=== PATIENT | male | born 1930 | race Caucasian/White ===

== ENCOUNTER → 2017-04-06 | Day surgery (SDC) | payer MEDICARE ==
[~2017-04-06] VITALS: Ht 167.6 cm; Wt 80.7 kg
[~2017-04-06] MED LIST: *morphine SULFATE 8 MG/ML PERIprocedure ONLY ONE; ACETAMINOPHEN/HYDROcodone 325 MG/7.5 MG TAB PO PRN; ALLO100T PO; ALLO300T2 PO; ASPI-110 PO; ASPI1TAB69 PO; BUPIVACAINE/EPINEPHRINE 0.5% PF 30 ML VIAL ONE; CALC0.25 PO; CARV25TA PO; CHLORHEXIDINE GLUCONATE 2 % 1 PACK (2 CLOTHS) TOPICAL PRN; CLON0.1T PO; DO NOT ADM ANY ANTICOAGULANT DRUGS PRN; DOXA4TAB3 PO; FAMOTIDINE 20 MG/2 ML VIAL ONE; FERR1TAB58 PO; FURO1TAB60 PO; INSULIN HUMAN REGULAR 1,000 UNITS/10 ML VIAL SQ PRN; LACTATED RINGER'S 1000 ML IV PRN; LOSA50TA PO; METOPROLOL TARTRATE 25 MG TAB PO PRN; MIDAZOLAM HCL 2 MG/2 ML VIAL ONE; NEOSTIGMINE 3 MG/3 ML SYR IV ONE; ONDANSETRON HCL 4 MG/2 ML VIAL IV PUSH ONE; ONDANSETRON HCL 4 MG/2 ML VIAL IV PUSH PRN; PATI1POW; PATI1POW3 PO; PIOG30TA4 PO; PRAV40TA2 PO; PROC20005 SQ; PROPOFOL 200 MG/20 ML AMP IV ONE; SODI-345 PO; SODIUM CHLORID 0.9% 500 ML IV PRN; VITA100064 PO; VITA100T PO; ceFAZolin 1,000 MG/NS 100 ML IV SCH; fentaNYL CITRATE 250 MCG/5 ML AMP ONE
[2017-04-06 10:04] VITALS: BP 183/82; PULSE 58; RESP 16; TEMP 97.1; O2SAT 99
[2017-04-06 10:20] LABS: AUTOMATED NEUTROPHIL # 3.4 TH/MM3 (1.8-7.7); BASOPHIL % 0.8 % (0.0-2.0); EOSINOPHIL # 0.4 TH/MM3 (0-0.4); EOSINOPHIL % 8.1 % (0.0-4.0); HEMATOCRIT 32.5 % (39.0-51.0); HEMO FLAGS DIFF FINAL; LYMPH % 17.6 % (9.0-44.0); LYMPHOCYTE # 0.9 TH/MM3 (1.0-4.8); MEAN CELL VOLUME 96.3 FL (80.0-100.0); MEAN CORPUSCULAR HEMOGLOBIN 32.5 PG (27.0-34.0); MEAN CORPUSCULAR HGB CONC 33.8 % (32.0-36.0); MONO % 9.4 % (0.0-8.0); NEUT % 64.1 % (16.0-70.0); PLATELET COUNT 134 TH/MM3 (150-450); RED BLOOD COUNT 3.37 MIL/MM3 (4.50-5.90); RED CELL DISTRIBUTION WIDTH 15.8 % (11.6-17.2); WHITE BLOOD COUNT 5.2 TH/MM3 (4.0-11.0)
--- NOTE | 2017-04-06 10:27 | EKG ---
Date Performed: 04/06/2017 Time Performed: 09:39:24 PTAGE: 86 years EKG: SINUS BRADYCARDIA WITH OCCASIONAL SUPRAVENTRICULAR PREMATURE COMPLEXES BORDERLINE ECG NO SI GNIFICANT CHANGE FROM PRIOR ELECTROCARDIOGRAM. PREVIOUS TRACING : 09/15/1999 12.31 DOCTOR: Eric Canela Interpretating Date/Time 04/06/2017 10:26:12
[2017-04-06 10:34] LABS: BICARBONATE 29.2 MEQ/L (21.0-32.0); POTASSIUM 3.6 MEQ/L (3.5-5.1)
[2017-04-06 15:50] VITALS: BP 166/81; PULSE 73; RESP 18; TEMP 97.6; O2SAT 97
--- NOTE | 2017-04-07 07:47 | MP ---
cc: Patel REDDY M.D. KIMO BENNETT M.D. DATE OF SURGERY 04/06/2017 PREOPERATIVE DIAGNOSIS Chronic kidney disease - needs peritoneal dialysis access. POSTOPERATIVE DIAGNOSIS Chronic kidney disease - needs peritoneal dialysis access. PROCEDURE Laparoscopic-assisted peritoneal dialysis catheter placement. SURGEON Henry Bennett MD RADIOLOGY MANAGER RANDA Mccollum ANESTHESIA General endotracheal DESCRIPTION OF THE OPERATIVE PROCEDURE With the patient in the supine position, general endotracheal anesthesia was induced, the abdomen then prepped with Betadine and draped in a sterile fashion. One gram of Ancef was administered intravenously and following a protocol time-out, the skin and subcutaneous tissue at the proposed incision sites preemptively infiltrated with 0.5% Marcaine with epinephrine. A transverse 2 cm incision was performed along the medial left intracostal region. The incision was deepened through the anterior rectus sheath. The posterior rectus sheath and peritoneum was incised and a 5 mm Surgiport bluntly advanced to the peritoneal space. The abdomen was insufflated with carbon dioxide. Laparoscopy revealed scattered adhesions throughout the mid pelvis related to prior prostatectomy. A separate 2 cm incision was performed immediately to the left and inferior to the umbilicus. The incision was deepened through the anterior rectus sheath. An 18 gauge needle was guided obliquely and caudally between the anterior and posterior rectus sheaths and under laparoscopic visualization, the needle was punctured through the posterior rectus sheath and peritoneum and guided toward the mid pelvis. A J-wire was advanced into the mid pelvis. The needle was exchanged for a catheter insertion sheath. The coiled peritoneal dialysis catheter was then delivered through the tear-away sheath and positioned within the mid pelvis. The internal catheter cuff was placed subjacent to the rectus sheathotomy which was secured around the cuff with interrupted 2-0 PDS. The subcutaneous portion of the catheter was tunneled and brought out through a separate stab incision left mid rectus region. The catheter was trimmed to an appropriate length. The titanium adapter was applied, the catheter flushed and capped. The abdomen was desufflated. The left subcostal rectus incision was secured with continuous 4-0 Monocryl. Both skin incisions were secured with continuous subcuticular 5-0 Monocryl. Steri-Strips were applied. The catheter exit site was dressed with sterile gauze and Tegaderm. Instrument, needle, and sponge counts correct x2. No operative complications. The patient returned to the recovery room in stable condition having tolerated the procedure well. MD JOELLEN Crews/ADI /5:34 PM /7:39 AM
== END | disposition home or self-care (01) ==
LOC: HSDC 09:11
PROVIDERS: ATTEND Surgery Vascular Surgery
DX: N18.9 Chronic kidney disease, unspecified (principal); Z01.810 Encounter for preprocedural cardiovascular examination; Z01.818 Encounter for other preprocedural examination
CPT/HCPCS: 00840; 49324; 80048; 85025; 93005; C1750; J0690; J2250; J2270; J2405; J2710; J3010; J7120

== ENCOUNTER 2017-05-16 10:59 | Emergency (ER) | payer MEDICARE ==
[~2017-05-16] VITALS: Ht 167.6 cm; Wt 82.0 kg
[~2017-05-16 10:59] MED LIST changes: -*morphine SULFATE 8 MG/ML PERIprocedure ONLY ONE; -ACETAMINOPHEN/HYDROcodone 325 MG/7.5 MG TAB PO PRN; -ALLO300T2 PO; -ASPI1TAB69 PO; -BUPIVACAINE/EPINEPHRINE 0.5% PF 30 ML VIAL ONE; -CHLORHEXIDINE GLUCONATE 2 % 1 PACK (2 CLOTHS) TOPICAL PRN; -DO NOT ADM ANY ANTICOAGULANT DRUGS PRN; -FAMOTIDINE 20 MG/2 ML VIAL ONE; -INSULIN HUMAN REGULAR 1,000 UNITS/10 ML VIAL SQ PRN; -LACTATED RINGER'S 1000 ML IV PRN; -METOPROLOL TARTRATE 25 MG TAB PO PRN; -MIDAZOLAM HCL 2 MG/2 ML VIAL ONE; -NEOSTIGMINE 3 MG/3 ML SYR IV ONE; -ONDANSETRON HCL 4 MG/2 ML VIAL IV PUSH ONE; -ONDANSETRON HCL 4 MG/2 ML VIAL IV PUSH PRN; -PROPOFOL 200 MG/20 ML AMP IV ONE; -SODIUM CHLORID 0.9% 500 ML IV PRN; -ceFAZolin 1,000 MG/NS 100 ML IV SCH; -fentaNYL CITRATE 250 MCG/5 ML AMP ONE
[2017-05-16 11:01] VITALS: BP 169/69; PULSE 57; RESP 16; TEMP 98.3; O2SAT 97
--- NOTE | 2017-05-16 11:34 | PD ---
HPI Chief Complaint: Welder Assistant Problem Time Seen by Provider: 11:28 Travel History International Travel<30 days: No Contact w/Intl Traveler<30days: No Traveled to known affect area: No History of Present Illness HPI Patient is 86-year-old male who presents to the emergency Department with complaint of dialysis port problem. Patient is on peritoneal dialysis. He disconnected from his machine this morning and forgot to put the sterile cap on it. He then talked to the port into his pocket. Later, he realized it and put the sterile port Back on. He called his sandblast carver, Dr. Morocho, who instructed him to come to the emergency department. Patient is otherwise asymptomatic. PFSH Past Medical History Cancer: Yes (PROSTATE, SKIN CA ON HEAD) Cardiovascular Problems: No Diabetes: Yes Patient Takes Glucophage: No Endocrine: No Gastrointestinal Disorders: Yes Genitourinary: Yes Hepatitis: No Hiatal Hernia: No Hypertension: Yes Immune Disorder: No Musculoskeletal: No Neurologic: No Psychiatric: No Reproductive: No Respiratory: No Renal Failure: Yes Thyroid Disease: No Past Surgical History Abdominal Surgery: Yes ( ) AICD: No Cardiac Surgery: No Cholecystectomy: Yes Ear Surgery: No Endocrine Surgery: No Eye Surgery: Yes (cataract 6-7 years ago) Genitourinary Surgery: No Joint Replacement: No Pacemaker: No Thoracic Surgery: No Tonsillectomy: Yes Social History Alcohol Use: Yes Tobacco Use: No Substance Use: No Allergies-Medications (Allergen,Severity, Reaction): Coded Allergies: Iodine (Verified Allergy, Severe, Swelling, 04/15/17) face swelling Seafood (Verified Allergy, Severe, Swelling, 04/15/17) face swelling Amoxicillin (Verified Allergy, Unknown, 05/16/17) Reported Meds & Prescriptions Reported Meds & Active Scripts Active Reported Veltassa (Patiromer Sorbitex Calcium) 16.8 Gm Pow 14 Mg PO DAILY Veltassa (Patiromer Sorbitex Calcium) 8.4 Gm Pow Vitamin D3 (Cholecalciferol) 1,000 Unit Tab 1,000 Units PO DAILY Aspirin 81 (Aspirin) 81 Mg Tabdr 81 Mg PO DAILY Allopurinol 100 Mg Tab 100 Mg PO DAILY Procrit Inj (Epoetin Madhu) 20,000 Unit/Ml Inj 20,000 Units SQ [id number] Sodium Bicarbonate (Sodium Bicarbonate (Bulk)) 1 Pow Pow 1 Pack PO BID Lasix (Furosemide) 40 Mg Tab 40 Mg PO BID Calcitriol 0.25 Mcg Cap 0.25 Mcg PO MOWEFR Clonidine (Clonidine HCl) 0.1 Mg Tab 0.1 Mg PO DAILY Losartan (Losartan Potassium) 50 Mg Tab 50 Mg PO DAILY Carvedilol 25 Mg Tab 12.5 Mg PO DAILY Vitamin B-12 (Cyanocobalamin) 100 Mcg Tab 100 Mcg PO DAILY Iron (Ferrous Sulfate) 50 Mg Tab 65 Mg PO DAILY Doxazosin (Doxazosin Mesylate) 4 Mg Tab 4 Mg PO DAILY Pravastatin 40 Mg Tab 40 Mg PO DAILY Pioglitazone (Pioglitazone HCl) 30 Mg Tab 30 Mg PO DAILY Review of Systems Except as stated in HPI: all other systems reviewed are Neg Physical Exam Narrative GENERAL: Well-appearing elderly male in no acute distress SKIN: Focused skin assessment warm/dry. HEAD: Normocephalic. EYES: No scleral icterus. No injection or drainage. ENT: Mucous membranes pink and moist. NECK: Supple CARDIOVASCULAR: Regular rate and rhythm. RESPIRATORY: No accessory muscle use. GASTROINTESTINAL: Obese. Abdomen soft, non-tender, nondistended. Dialysis port left abdomen. MUSCULOSKELETAL: Normal gait NEUROLOGICAL: Awake and alert. Normal speech. PSYCHIATRIC: Appropriate mood and affect; insight and judgment normal. Data Data Last Documented VS Vital Signs Date Time Temp Pulse Resp B/P Pulse Ox O2 Delivery O2 Flow Rate FiO2 05/16/17 11:01 98.3 57 16 169/69 97 Orders Iv Access Insert/Monitor (05/16/17 11:46) Oximetry (05/16/17 11:46) Sodium Chloride 0.9% Flush (Ns Flush) (05/16/17 12:00) Vancomycin Inj (Vancomycin Inj) (05/16/17 11:46) Ceftazidime Inj (Fortaz Inj) (05/16/17 13:00) MDM Medical Decision Making Medical Screen Exam Complete: Yes Emergency Medical Condition: Yes Medical Record Reviewed: Yes Differential Diagnosis 86-year-old male on peritoneal dialysis here after he forgot to place the sterile cap on his peritoneal dialysis catheter this morning prior to putting it in his pocket. Differential includes medical devices problem, contamination of peritoneal dialysis catheter. Narrative Course I spoke with patient's sandblast carver, Dr. Morocho, who wanted 1 g of vancomycin, 1 g of Ceftazidime administered and discharged home Diagnosis Primary Impression: Infection of peritoneal dialysis catheter site Qualified Code: T85.71XA - Infection of peritoneal dialysis catheter site, initial encounter Referrals: Patel Morocho MD 1 day Additional Instructions: Follow-up in dialysis clinic tomorrow as instructed by Dr. Morocho. Med/Other Pt SpecificInfo: No Change to Meds Disposition: 01 DISCHARGE HOME Condition: Stable Mercedes Still MD May 16, 2017 11:34
[2017-05-16] MEDS ORDERED: VANCOMYCIN INJ 1,000 MG in SODIUM CHLOR 0.9% 250 ML INJ 250 ML IV STA (11:46)
[2017-05-16] MEDS ORDERED: SODIUM CHLORIDE 0.9% FLUSH 10 ML FLUSH IV FLUSH PRN (12:00)
[2017-05-16] MEDS ORDERED: cefTAZidime 1,000 MG/NS 100 ML MINIBAG IV ONE ×2 (13:00)
== END 2017-05-16 13:54 | disposition home or self-care (01) ==
LOC: NEPD 10:59
DX: T85.71XA Infection and inflammatory reaction due to peritoneal dialysis catheter, initial encounter (principal); E11.22 Type 2 diabetes mellitus with diabetic chronic kidney disease; I12.9 Hypertensive chronic kidney disease with stage 1 through stage 4 chronic kidney disease, or unspecified chronic kidney disease; N18.9 Chronic kidney disease, unspecified; Z79.82 Long term (current) use of aspirin; Z79.899 Other long term (current) drug therapy
CPT/HCPCS: 96374; 96375; 99284; J0713; J3370; J7050

== ENCOUNTER 2017-07-14 08:51 | Inpatient (IN) | payer MEDICARE ==
[~2017-07-14] VITALS: Ht 167.6 cm; Wt 83.0 kg
[2017-07-14 09:00] VITALS: BP 126/59; PULSE 82; RESP 18; TEMP 97.8; O2SAT 98
[2017-07-14] MEDS ORDERED: ACETAMINOPHEN 325 MG TAB PO PRN ×2 (10:00→12:15)
[2017-07-14] MEDS ORDERED: BISACODYL 10 MG SUPP RECTAL PRN (10:00)
[2017-07-14] MEDS ORDERED: NALOXONE HCL 0.4 MG/ML AMP IV PUSH PRN (10:00)
[2017-07-14] MEDS ORDERED: LACTULOSE SYRUP 20 GM/30 ML CUP PO PRN (10:00)
[2017-07-14] MEDS ORDERED: SENNOSIDES 8.6 MG TAB PO PRN (10:00)
[2017-07-14] MEDS ORDERED: SODIUM CHLORIDE 0.9% FLUSH 10 ML FLUSH IV FLUSH PRN ×2 (10:00→12:15)
[2017-07-14] MEDS ORDERED: ONDANSETRON HCL 4 MG/2 ML VIAL IVP PRN (10:00)
[2017-07-14] MEDS ORDERED: MAGNESIUM HYDROXIDE SUSP 30 ML CUP PO PRN (10:00)
--- NOTE | 2017-07-14 10:03 | HHI.HP ---
[facility] Dion Littlejohn MD Admission Diagnosis Diagnoses: Chief Complaint: direct admit for HD (Aleksandra Miller) Travel History International Travel<30 Days: No Contact w/Intl Traveler <30 Da: No Traveled to Known Affected Are: No (Aleksandra Miller) History of Present Illness Mr. Nacho Culver is a pleasant 86-year-old elderly white male with significant past medical history of chronic kidney disease stage V, hypertension, type 2 diabetes, hyperkalemia, peripheral edema. Patient is under the care of Dr. Morocho. Patient has a known history of chronic kidney disease has advanced to end-stage renal disease, he has been on peritoneal dialysis since March 2017. Apparently, treatments have not been working therefore he was sent to the hospital by Dr. Morocho to have a permacath placed and to be started on hemodialysis. Patient indicates that he has not been eating very much and is very fatigued. He has some shortness of breath with exertion, no chest pain. He has chills but no fever. He had a peritoneal catheter placed per Dr. Schafer on April 06, 2017. Patient indicates that he has increased pedal edema, he has been compliant with taking medications. Patient is admitted for further evaluation and treatment. (Aleksandra Miller) Review of Systems Constitutional: COMPLAINS OF: Fatigue, Change in appetite, DENIES: Diaphoretic episodes, Fever, Weight gain, Weight loss, Chills, Dizziness, Night Sweats Endocrine: DENIES: Heat/cold intolerance, Polydipsia, Polyuria, Polyphagia Eyes: DENIES: Blurred vision, Diplopia, Eye inflammation, Eye pain, Vision loss , Photosensitivity, Double Vision Ears, nose, mouth, throat: DENIES: Tinnitus, Hearing loss, Vertigo, Nasal discharge, Oral lesions, Throat pain, Hoarseness, Ear Pain, Running Nose, Epistaxis, Sinus Pain, Toothache, Odynophagia Respiratory: DENIES: Apneas, Cough, Snoring, Wheezing, Hemoptysis, Sputum production, Shortness of breath Cardiovascular: COMPLAINS OF: Dyspnea on Exertion, Lower Extremity Edema, DENIES: Chest pain, Palpitations, Syncope, PND, Orthopnea, Claudication Gastrointestinal: DENIES: Abdominal pain, Black stools, Bloody stools, Constipation, Diarrhea, Nausea, Vomiting, Difficulty Swallowing, Anorexia Genitourinary: DENIES: Sexual dysfunction, Urinary frequency, Urinary incontinence, Urgency, Hematuria, Dysuria, Nocturia, Penile Discharge, Testicular Pain, Testicular Swelling Musculoskeletal: DENIES: Joint pain, Muscle aches, Stiffness, Joint Swelling, Back pain, Neck pain Integumentary: DENIES: Abnormal pigmentation, Nail changes, Pruritus, Rash Hematologic/lymphatic: DENIES: Bruising, Lymphadenopathy Immunologic/allergic: DENIES: Eczema, Urticaria Neurologic: DENIES: Abnormal gait, Headache, Localized weakness, Paresthesias, Seizures, Speech Problems, Tremor, Poor Balance Psychiatric: DENIES: Anxiety, Confusion, Mood changes, Depression, Hallucinations, Agitation, Suicidal Ideation, Homicidal Ideation, Delusions Other Not making any urine (Aleksandra Miller) Past Family Social History Past Medical History End-stage renal disease now requiring peritoneal dialysis CKD stage V Anemia Type 2 diabetes Hyperkalemia Peripheral edema Hypertension Type 2 diabetes Hyperlipidemia Gout Skin cancer Secondary hyperparathyroidism Acidosis Past Surgical History PD catheter placement 04/06/[address] Schafer Skin cancer removal Cholecystectomy Prostate surgery Reported Medications Reported Meds & Active Scripts Active Reported Veltassa (Patiromer Sorbitex Calcium) 16.8 Gm Pow 14 Mg PO DAILY Veltassa (Patiromer Sorbitex Calcium) 8.4 Gm Pow Vitamin D3 (Cholecalciferol) 1,000 Unit Tab 1,000 Units PO DAILY Aspirin 81 (Aspirin) 81 Mg Tabdr 81 Mg PO DAILY Allopurinol 100 Mg Tab 100 Mg PO DAILY Procrit Inj (Epoetin Madhu) 20,000 Unit/Ml Inj 20,000 Units SQ [id number] Sodium Bicarbonate (Sodium Bicarbonate (Bulk)) 1 Pow Pow 1 Pack PO BID Lasix (Furosemide) 40 Mg Tab 40 Mg PO BID Calcitriol 0.25 Mcg Cap 0.25 Mcg PO MOWEFR Clonidine (Clonidine HCl) 0.1 Mg Tab 0.1 Mg PO DAILY Losartan (Losartan Potassium) 50 Mg Tab 50 Mg PO DAILY Carvedilol 25 Mg Tab 12.5 Mg PO DAILY Vitamin B-12 (Cyanocobalamin) 100 Mcg Tab 100 Mcg PO DAILY Iron (Ferrous Sulfate) 50 Mg Tab 65 Mg PO DAILY Doxazosin (Doxazosin Mesylate) 4 Mg Tab 4 Mg PO DAILY Pravastatin 40 Mg Tab 40 Mg PO DAILY Pioglitazone (Pioglitazone HCl) 30 Mg Tab 30 Mg PO DAILY (Aleksandra Miller) Allergies: Coded Allergies: Fish Containing Products (Unverified Allergy, Severe, Swelling, 06/08/17) face swelling iodine (Unverified Allergy, Severe, Swelling, 06/08/17) face swelling potassium iodide (Unverified Allergy, Severe, Swelling, 06/08/17) face swelling povidone-iodine (Unverified Allergy, Severe, Swelling, 06/08/17) face swelling sodium iodide (Unverified Allergy, Severe, Swelling, 06/08/17) face swelling sodium iodide (Unverified Allergy, Severe, Swelling, 06/08/17) face swelling amoxicillin (Unverified Allergy, Unknown, 06/08/17) Active Ordered Medications Inpatient Medications Acetaminophen (Tylenol) 650 mg Q4H PRN PO TEMP > 100.4; Start 07/14/17 at 10:00 ; Status UNV Bisacodyl (Dulcolax Supp) 10 mg DAILY PRN RECTAL SEVERE CONSITIPATION; Start at 10:00; Status UNV Lactulose (Lactulose Liq) 30 ml DAILY PRN PO SEVERE CONSITIPATION; Start at 10:00; Status UNV Magnesium Hydroxide (Milk Of Magnesia Liq) 30 ml Q12H PRN PO MILD - MODERATE CONSTIPATION; Start 07/14/17 at 10:00; Status UNV Naloxone HCl (Narcan Inj) 0.4 mg UNSCH PRN IV PUSH SEE LABEL COMMENTS; Start at 10:00; Status UNV Ondansetron HCl (Zofran Inj) 4 mg Q6H PRN IVP NAUSEA OR VOMITING; Start at 10:00; Status UNV Senna/Docusate Sodium (Hillary-Colace) 1 tab BID PO ; Start 07/14/17 at 21:00; Status UNV Sennosides (Senokot) 17.2 mg Q12H PRN PO MODERATE - SEVERE CONSTIPATION; Start 07/14/17 at 10:00; Status UNV Sodium Chloride (NS Flush) 2 ml BID IV FLUSH ; Start 07/14/17 at 21:00; Status UNV Family History Father , stroke, coronary artery disease Mother , stroke, coronary artery disease Family history of hypertension Social History Prior smoker, 3 drinks per week. No illegal drug use. (Aleksandra Miller) Physical Exam Vital Signs Vital Signs Date Time Temp Pulse Resp B/P (MAP) Pulse Ox O2 Delivery O2 Flow Rate FiO2 07/14/17 09:00 97.8 82 18 126/59 (81) 98 Physical Exam GENERAL: This is a well-nourished, well-developed patient, in no apparent distress. SKIN: No rashes, ecchymoses or lesions. Cool and dry. HEAD: Atraumatic. Normocephalic. No temporal or scalp tenderness. EYES: Pupils equal round and reactive. Extraocular motions intact. No scleral icterus. No injection or drainage. ENT: Nose without bleeding, purulent drainage or septal hematoma. Throat without erythema, tonsillar hypertrophy or exudate. Uvula midline. Airway patent. NECK: Trachea midline. No JVD or lymphadenopathy. Supple, nontender, no meningeal signs. CARDIOVASCULAR: Regular rate and rhythm without murmurs, gallops, or rubs. RESPIRATORY: Clear to auscultation. Breath sounds equal bilaterally. No wheezes , rales, or rhonchi. GASTROINTESTINAL: Abdomen soft, non-tender, nondistended. No hepato-splenomegaly , or palpable masses. No guarding. Has a peritoneal dialysis catheter to the left lower abdomen. Dressing is intact. No erythema. MUSCULOSKELETAL: Extremities without clubbing, cyanosis. Has 2-3+ pitting edema edema. Pedal pulses difficult to palpate, toes warm to touch. Capillary refill less than 3 seconds. No joint tenderness, effusion, or edema noted. No calf tenderness. Negative Homans sign bilaterally. NEUROLOGICAL: Awake and alert. Cranial nerves II through XII intact. Motor and sensory grossly within normal limits. Five out of 5 muscle strength in all muscle groups. Normal speech. (Aleksandra Miller) Caprini VTE Risk Assessment Caprini VTE Risk Assessment: Mod/High Risk (score >= 2) Caprini Risk Assessment Model Point Value = 1 Point Value = 2 Point Value = 3 Point Value = 5 Age 41-60 Minor surgery BMI > 25 kg/m2 Swollen legs Varicose veins or History of unexplained or recurrent spontaneous Oral contraceptives or hormone replacement Sepsis (< 1 month) Serious lung disease, including pneumonia (< 1 month) Abnormal pulmonary function Acute myocardial infarction Congestive heart failure (< 1 month) History of inflammatory bowel disease Medical patient at bed rest Age 61-74 Arthroscopic surgery Major open surgery (> 45 min) Laparoscopic surgery (> 45 min) Malignancy Confined to bed (> 72 hours) Immobilizing plaster cast Central venous access Age >= 75 History of VTE Family history of VTE Factor V Leiden Prothrombin [id number] Lupus anticoagulant Anticardiolipin antibodies Elevated serum homocysteine Heparin-induced thrombocytopenia Other congenital or acquired thrombophilia Stroke (< 1 month) Elective arthroplasty Hip, pelvis, or leg fracture Acute spinal cord injury (< 1 month) Prophylaxis Regimen Total Risk Factor Score Risk Level Prophylaxis Regimen 0-1 Low Early ambulation 2 Moderate Order ONE of the following: *Sequential Compression Device (SCD) *Heparin 5000 units SQ BID 3-4 Higher Order ONE of the following medications: *Heparin 5000 units SQ TID *Enoxaparin/Lovenox 40 mg SQ daily (WT < 150 kg, CrCl > 30 mL/min) *Enoxaparin/Lovenox 30 mg SQ daily (WT < 150 kg, CrCl > 10-29 mL/min) *Enoxaparin/Lovenox 30 mg SQ BID (WT < 150 kg, CrCl > 30 mL/min) AND/OR *Sequential Compression Device (SCD) 5 or more Highest Order ONE of the following medications: *Heparin 5000 units SQ TID (Preferred with Epidurals) *Enoxaparin/Lovenox 40 mg SQ daily (WT < 150 kg, CrCl > 30 mL/min) *Enoxaparin/Lovenox 30 mg SQ daily (WT < 150 kg, CrCl > 10-29 mL/min) *Enoxaparin/Lovenox 30 mg SQ BID (WT < 150 kg, CrCl > 30 mL/min) AND *Sequential Compression Device (SCD) (Aleksandra Miller) Assessment and Plan Problem List: (1) End stage renal disease ICD Codes: N18.6 - End stage renal disease Status: Chronic (2) CKD (chronic kidney disease) stage 5, GFR less than 15 ml/min ICD Codes: N18.5 - Chronic kidney disease, stage 5 Status: Chronic (3) Hypertension ICD Codes: I10 - Essential (primary) hypertension (4) Type 2 diabetes mellitus ICD Codes: E11.9 - Type 2 diabetes mellitus without complications Status: Chronic (5) Peripheral edema ICD Codes: R60.9 - Edema, unspecified Assessment and Plan Admit to Dr. Stout 86-year-old male with chronic kidney disease stage V, was on peritoneal dialysis. Now admitted for permacath placement and to begin hemodialysis Chronic kidney disease stage V now requiring dialysis -Nephrology consultation -Patient will be kept nothing by mouth, nephrology to arrange placement of permacath -Hemodialysis management per nephrology -Monitor renal function -Avoid nephrotoxic agents Diabetes type 2 -Accu-Cheks before meals and at bedtime with insulin therapy Hypertension, stable -Resume home medications Peripheral edema -Continue diuretics -Patient to be started on hemodialysis We will check stat BMP, CBC, PT/INR, PT We'll keep nothing by mouth for permacath placement today Home medications reviewed, some initiated as indicated SCDs for DVT prophylaxis Plan of care has been discussed with the patient and his , RN and attending. Further management of the patient will be dependent on the hospital course This patient was seen by myself and Dr. Stout, this H&P is written on his behalf (Aleksandra Miller) Assessment and Plan seen, examined by myself, Dr Stout, today Discussed with patient End-stage renal disease Has been on peritoneal dialysis Now converted to hemodialysis Patient complaining of severe fatigue and severe exertional dyspnea with fluid retention, lower extremities edema The hope is that with hemodialysis he will have some better quality of life with trying to control his symptoms Discussed with mid level provider The exam, history, and the medical decision-making described in the above note were completed with the assistance of the mid-level provider. I reviewed the findings presented. I attest that I had a [id number] encounter with the patient on the same day, and personally performed and documented my assessment and findings in the medical record. (Colleen Stout MD) Physician Certification 2 Midnight Certification Type: Admission for Inpatient Services Order for Inpatient Services The services are ordered in accordance with Medicare regulations or non- Medicare payer requirements, as applicable. In the case of services not specified as inpatient-only, they are appropriately provided as inpatient services in accordance with the 2-midnight benchmark. Estimated LOS (days): 2 2 days is the estimated time the patient will need to remain in the hospital, assuming treatment plan goals are met and no additional complications. Post-Hospital Plan: Home Health (Aleksandra Miller) Problem Qualifiers (1) Hypertension: Qualified Codes: I10 - Essential (primary) hypertension (2) Type 2 diabetes mellitus: Qualified Codes: E11.22 - Type 2 diabetes mellitus with diabetic chronic kidney disease; N18.6 - End stage renal disease; Z99.2 - Dependence on renal dialysis Aleksandra Miller Jul 14, 2017 10:03 Colleen Stout MD Jul 14, 2017 18:32
[2017-07-14 12:00] VITALS: BP 133/66; PULSE 71; RESP 18; TEMP 97.8; O2SAT 97
[2017-07-14 12:02] LABS: HEMATOCRIT 28.4 % (39.0-51.0); MEAN CELL VOLUME 97.3 FL (80.0-100.0); MEAN CORPUSCULAR HEMOGLOBIN 31.8 PG (27.0-34.0); MEAN CORPUSCULAR HGB CONC 32.6 % (32.0-36.0); PLATELET COUNT 195 TH/MM3 (150-450); RED BLOOD COUNT 2.92 MIL/MM3 (4.50-5.90); RED CELL DISTRIBUTION WIDTH 15.9 % (11.6-17.2); REVIEW FLAG FINAL; WHITE BLOOD COUNT 5.8 TH/MM3 (4.0-11.0)
[2017-07-14] MEDS ORDERED: SODIUM CHLOR 0.9% 1000 ML INJ 1,000 ML IV PRN (12:04)
[2017-07-14] MEDS ORDERED: SODIUM CHLOR 0.9% 1000 ML INJ 1,000 ML OTHER PRN ×2 (12:04)
[2017-07-14 12:09] LABS: APTT (PATIENT) 26.4 SEC (24.3-30.1); INTERNATIONAL NORMALIZED RATIO 1.1 RATIO; PROTHROMBIN TIME - PATIENT 11.7 SEC (9.8-11.6)
[2017-07-14] MEDS ORDERED: diphenhydrAMINE HCL 25 MG CAP PO PRN (12:15)
[2017-07-14] MEDS ORDERED: ALBUMIN HUMAN 25% 25 GM/100 ML BAGP IV PRN (12:15)
[2017-07-14] MEDS ORDERED: cloNIDine HCL 0.1 MG TAB PO PRN (12:15)
[2017-07-14] MEDS ORDERED: GENTAMICIN SULFATE (DIALYSIS USE ONLY) 20 MG/2 ML VIAL OTHER PRN (12:15)
[2017-07-14] MEDS ORDERED: MANNITOL 12.5 GM/50 ML VIAL IV PRN (12:15)
[2017-07-14] MEDS ORDERED: HEPARIN SODIUM - IV 10,000 UNITS/10 ML VIAL PRN (12:15)
[2017-07-14] MEDS ORDERED: HEPARIN SODIUM - IV 10,000 UNITS/10 ML VIAL IV FLUSH PRN (12:15)
[2017-07-14] MEDS ORDERED: NITROGLYCERIN 0.4 MG SL 25 TABS/BTL SL PRN (12:15)
[2017-07-14] MEDS ORDERED: ONDANSETRON HCL 4 MG/2 ML VIAL IV PUSH PRN (12:15)
[2017-07-14] MEDS ORDERED: GELATIN 12 MM/7 MM FOAM TOP PRN (12:15)
[2017-07-14 12:18] LABS: BICARBONATE 31.1 MEQ/L (21.0-32.0); POTASSIUM 3.1 MEQ/L (3.5-5.1)
[2017-07-14 12:46] VITALS: O2SAT 98
[2017-07-14] MEDS ORDERED: GLUCAGON 1 MG/ML VIAL OTHER PRN (13:00)
[2017-07-14] MEDS ORDERED: DEXTROSE 50% IN WATER 50 ML VIAL(D50) IV PUSH PRN (13:00)
[2017-07-14] MEDS ORDERED: VANCOMYCIN INJ 500 MG in SODIUM CHLORIDE 0.9% INJ 100 ML IV SCH (13:30)
[2017-07-14] MEDS ORDERED: CALCITRIOL 0.25 MCG CAP PO SCH (14:00)
[2017-07-14 16:00] VITALS: BP 153/78; PULSE 74; RESP 18; TEMP 98.1; O2SAT 97
[2017-07-14] MEDS ORDERED: POTASSIUM CHLORIDE 25 MEQ EFFERVESCENT TAB PO ONE (16:00)
[2017-07-14] MEDS ORDERED: MIDAZOLAM HCL 2 MG/2 ML VIAL ONE (16:10)
--- NOTE | 2017-07-14 16:37 | PD.RAD ---
Post Procedure Progress Note Pre Procedure Diagnosis: (1) End stage renal disease Post Procedure Diagnosis: (1) End stage renal disease Procedure Date: Jul 14, 2017 Supervising Radiologist: Michael Diaz Estimated blood loss: 3CC Anesthesia: Local, Conscious Sedation Plan of Activity Patient to Unit: Other Patient Condition: Fair Additional Comments: Right IJ Perm Cath placed without difficulty. Catheter in good position OK for use. Full dictated report to follow See PACS Report for procedural detail/treatment Michael Diaz MD Jul 14, 2017 16:37
--- NOTE | 2017-07-14 16:44 | PD.CONS ---
[facility] Service Nephrology Reason for Consult Known to our services. To convert from PD to HD Primary Care Physician Dion Littlejohn MD History of Present Illness The patient is an 86 yo [place] male who is known to our services for ESRD on PD. He is a fairly new start to dialysis with start in March 2017, but has not been meeting kT/V and has not been meeting ultrafiltration goals despite PD solution prescription change. His recent PET test showed that he is a high transporter. He has been progressively fatigued and is now becoming fluid overloaded. He has been admitted to this facility to convert to hemodialysis via permcath. (Danyelle Cheney) Review of Systems Constitutional: COMPLAINS OF: Fatigue Cardiovascular: COMPLAINS OF: Lower Extremity Edema (Danyelle Cheney) Past Family Social History Allergies: Coded Allergies: Fish Containing Products (Unverified Allergy, Severe, Swelling, 06/08/17) face swelling iodine (Unverified Allergy, Severe, Swelling, 06/08/17) face swelling potassium iodide (Unverified Allergy, Severe, Swelling, 06/08/17) face swelling povidone-iodine (Unverified Allergy, Severe, Swelling, 06/08/17) face swelling sodium iodide (Unverified Allergy, Severe, Swelling, 06/08/17) face swelling sodium iodide (Unverified Allergy, Severe, Swelling, 06/08/17) face swelling amoxicillin (Unverified Allergy, Unknown, 06/08/17) Past Medical History End-stage renal disease Anemia Type 2 diabetes Hypertension Hyperlipidemia Gout Skin cancer Secondary hyperparathyroidism Past Surgical History Skin cancer removal Cholecystectomy Prostate surgery PD catheter placement by Dr. Schafer March 2017 Reported Medications Reported Meds & Active Scripts Active Reported Veltassa (Patiromer Sorbitex Calcium) 16.8 Gm Pow 14 Mg PO DAILY Veltassa (Patiromer Sorbitex Calcium) 8.4 Gm Pow Vitamin D3 (Cholecalciferol) 1,000 Unit Tab 1,000 Units PO DAILY Aspirin 81 (Aspirin) 81 Mg Tabdr 81 Mg PO DAILY Allopurinol 100 Mg Tab 100 Mg PO DAILY Procrit Inj (Epoetin Madhu) 20,000 Unit/Ml Inj 20,000 Units SQ [id number] Sodium Bicarbonate (Sodium Bicarbonate (Bulk)) 1 Pow Pow 1 Pack PO BID Lasix (Furosemide) 40 Mg Tab 40 Mg PO BID Calcitriol 0.25 Mcg Cap 0.25 Mcg PO MOWEFR Clonidine (Clonidine HCl) 0.1 Mg Tab 0.1 Mg PO DAILY Losartan (Losartan Potassium) 50 Mg Tab 50 Mg PO DAILY Carvedilol 25 Mg Tab 12.5 Mg PO DAILY Vitamin B-12 (Cyanocobalamin) 100 Mcg Tab 100 Mcg PO DAILY Iron (Ferrous Sulfate) 50 Mg Tab 65 Mg PO DAILY Doxazosin (Doxazosin Mesylate) 4 Mg Tab 4 Mg PO DAILY Pravastatin 40 Mg Tab 40 Mg PO DAILY Pioglitazone (Pioglitazone HCl) 30 Mg Tab 30 Mg PO DAILY Active Ordered Medications Current Medications Medications (Trade) Dose Ordered Sig/[place] Route Start Time Stop Time Status Last Admin (NS Flush) 2 ml UNSCH PRN IV FLUSH 07/14/17 10:00 (NS Flush) 2 ml BID IV FLUSH 07/14/17 21:00 (Tylenol) 650 mg Q4H PRN PO 07/14/17 10:00 (Zofran Inj) 4 mg Q6H PRN IVP 07/14/17 10:00 (Narcan Inj) 0.4 mg UNSCH PRN IV PUSH 07/14/17 10:00 (Hillary-Colace) 1 tab BID PO 07/14/17 21:00 (Milk Of Magnesia Liq) 30 ml Q12H PRN PO 07/14/17 10:00 (Senokot) 17.2 mg Q12H PRN PO 07/14/17 10:00 (Dulcolax Supp) 10 mg DAILY PRN RECTAL 07/14/17 10:00 (Lactulose Liq) 30 ml DAILY PRN PO 07/14/17 10:00 Sodium Chloride 1,000 ml @ 0 mls/hr Q0M PRN OTHER 07/14/17 12:04 (Heparin Inj) 8,000 units UNSCH PRN IV FLUSH 07/14/17 12:15 Sodium Chloride 1,000 ml @ 200 mls/hr Q5H PRN IV 07/14/17 12:04 Sodium Chloride 1,000 ml @ 0 mls/hr Q0M PRN OTHER 07/14/17 12:04 (Mannitol Inj) 12.5 gm UNSCH PRN IV 07/14/17 12:15 (Albumin 25% Inj) 25 gm UNSCH PRN IV 07/14/17 12:15 (NS Flush) 5 ml UNSCH PRN IV FLUSH 07/14/17 12:15 (Heparin Inj) UNSCH PRN .XX 07/14/17 12:15 (Gentamicin (Dialysis) Inj) 20 mg UNSCH PRN OTHER 07/14/17 12:15 (Zofran Inj) 4 mg UNSCH PRN IV PUSH 07/14/17 12:15 (Tylenol) 650 mg UNSCH PRN PO 07/14/17 12:15 (Benadryl) 25 mg UNSCH PRN PO 07/14/17 12:15 (Nitrostat Sl) 0.4 mg UNSCH PRN SL 07/14/17 12:15 (Catapres) 0.1 mg UNSCH PRN PO 07/14/17 12:15 (Gelfoam 12 Mm/7 Mm Top) 1 foam UNSCH PRN TOP 07/14/17 12:15 (Zyloprim) 100 mg DAILY PO 07/15/17 09:00 (Rocaltrol) 0.25 mcg MoWeFr PO 07/14/17 14:00 (Coreg) 12.5 mg DAILY PO 07/15/17 09:00 (Vitamin D3) 1,000 units DAILY PO 07/15/17 09:00 (Catapres) 0.1 mg DAILY PO 07/15/17 09:00 (Cardura) 4 mg DAILY PO 07/15/17 09:00 (Lasix) 40 mg BID PO 07/14/17 21:00 (Cozaar) 50 mg DAILY PO 07/15/17 09:00 (Actos) 30 mg DAILY PO 07/15/17 09:00 (Pravachol) 40 mg DAILY PO 07/15/17 09:00 (D50w (Vial) Inj) 50 ml UNSCH PRN IV PUSH 07/14/17 13:00 (Glucagon Inj) 1 mg UNSCH PRN OTHER 07/14/17 13:00 (NovoLOG SUPPLEMENTAL SCALE) 1 ACHS SLIDING SCALE SQ 07/14/17 17:00 Vancomycin HCl 500 mg/Sodium Chloride 100 ml @ 200 mls/hr [employer] IV 07/14/17 13:30 07/17/17 13:29 07/14/17 14:09 Family History CAD Social History Drinks 3 alcoholic drinks weekly Previous smoker, but not in many years Denies illicits and [place] (Danyelle Cheney) Physical Exam Vital Signs Vital Signs Date Time Temp Pulse Resp B/P (MAP) Pulse Ox O2 Delivery O2 Flow Rate FiO2 07/14/17 12:46 98 21 07/14/17 12:00 97.8 71 18 133/66 (88) 97 07/14/17 12:00 Room Air 07/14/17 09:45 98 Room Air 07/14/17 09:00 97.8 82 18 126/59 (81) 98 Physical Exam GENERAL: Seen during HD. Access appears to be working well. SKIN: Warm and dry. HEAD: Atraumatic. Normocephalic. EYES: Pupils equal and round. No scleral icterus. No injection or drainage. ENT: No nasal bleeding or discharge. Mucous membranes pink and moist. NECK: Trachea midline. No JVD. CARDIOVASCULAR: Regular rate and rhythm. RESPIRATORY: No accessory muscle use. Clear to auscultation. Breath sounds equal bilaterally. GASTROINTESTINAL: Abdomen soft, non-tender, nondistended. Hepatic and splenic margins not palpable. MUSCULOSKELETAL: Extremities without clubbing, cyanosis, 2+ pitting edema BLE up to knees NEUROLOGICAL: Awake and alert. Normal speech. PSYCHIATRIC: Appropriate mood and affect; insight and judgment normal. Laboratory Laboratory Tests Test 07/14/17 11:50 White Blood Count 5.8 Red Blood Count 2.92 Hemoglobin 9.3 Hematocrit 28.4 Mean Corpuscular Volume 97.3 Mean Corpuscular Hemoglobin 31.8 Mean Corpuscular Hemoglobin Concent 32.6 Red Cell Distribution Width 15.9 Platelet Count 195 Mean Platelet Volume 8.1 Prothrombin Time 11.7 Prothromb Time International Ratio 1.1 Activated Partial Thromboplast Time 26.4 Blood Urea Nitrogen 50 Creatinine 8.38 Random Glucose 119 Calcium Level 8.3 Sodium Level 136 Potassium Level 3.1 Chloride Level 94 Carbon Dioxide Level 31.1 Anion Gap 11 Estimat Glomerular Filtration Rate 6 (Danyelle Cheney) Result Diagram: 07/14/17 1150 07/14/17 1150 Assessment and Plan Problem List: (1) End stage renal disease ICD Codes: N18.6 - End stage renal disease Status: Chronic Plan: The patient has unfortunately failed peritoneal dialysis attempts despite prescription change, not meeting kinetics and becoming fluid overloaded. He has been seen s/p PermCath placement and during first hemodialysis session and access working well Will run 3h treatment today and if doing well tomorrow, will be discharged to start MWF schedule as outpatient. Received K+ supplement today for hypokalemia. On 3K bath Epogen 10,000U tonight with HD. Medications should be adjusted for the patient's ESRD. Avoid gadolinium. (2) Anemia ICD Codes: D64.9 - Anemia, unspecified Plan: Epogen with HD (3) Hypertension ICD Codes: I10 - Essential (primary) hypertension Plan: Continue on home regimen (4) Type 2 diabetes mellitus ICD Codes: E11.9 - Type 2 diabetes mellitus without complications Status: Chronic Plan: Continue on home regimen (Danyelle Cheney) Assessment and Plan The exam, history, and the medical decision-making described in the above note were completed with the assistance of the PA-C. I reviewed and agree with the findings presented. I attest that I had a [id number] encounter with the patient on the same day, and personally performed and documented my assessment and findings in the medical record. (Patel Morocho MD) Problem Qualifiers (1) Hypertension: Qualified Codes: I10 - Essential (primary) hypertension (2) Type 2 diabetes mellitus: Qualified Codes: E11.22 - Type 2 diabetes mellitus with diabetic chronic kidney disease; N18.6 - End stage renal disease; Z99.2 - Dependence on renal dialysis Danyelle Cheney Jul 14, 2017 16:43 Patel Morocho MD Jul 14, 2017 18:44
[2017-07-14] MEDS ORDERED: SODIUM CHLORIDE 0.9% FLUSH 10 ML FLUSH IVF PRN (16:45)
[2017-07-14] MEDS ORDERED: HEPARIN SODIUM - IV 2,000 UNITS/2 ML VIAL IV FLUSH PRN (16:45)
[2017-07-14] MEDS: INSULIN ASPART SUPPLEMENTAL SCALE SQ SCH ×2 (17:00→21:00)
[2017-07-14] MEDS ORDERED: EPOETIN ALFA 10,000 UNITS/ML VIAL IV ONE (18:00)
[2017-07-14 20:20] VITALS: BP 132/58; PULSE 92; RESP 16; TEMP 97.9; O2SAT 95
[2017-07-14 20:25] VITALS: PULSE 95
[2017-07-14] MEDS: SODIUM CHLORIDE 0.9% FLUSH 10 ML FLUSH IV FLUSH SCH (21:00)
[2017-07-14] MEDS ORDERED: SODIUM BICARBONATE PO SCH (21:00)
[2017-07-14] MEDS: FUROSEMIDE 40 MG TAB PO SCH (21:00)
[2017-07-14] MEDS: DOCUSATE SODIUM 50 MG/SENNA 8.6 MG TAB PO SCH (21:00)
[2017-07-15 00:07] VITALS: BP 133/60; PULSE 79; RESP 16; TEMP 98.7; O2SAT 96
[2017-07-15 04:55] VITALS: BP 135/63; PULSE 63; RESP 16; TEMP 97.9; O2SAT 94
[2017-07-15] MEDS: INSULIN ASPART SUPPLEMENTAL SCALE SQ SCH ×2 (07:59→12:00)
[2017-07-15 08:00] VITALS: BP 128/72; PULSE 68; PULSE 69; RESP 18; TEMP 99.1; O2SAT 94
[2017-07-15] MEDS: DOCUSATE SODIUM 50 MG/SENNA 8.6 MG TAB PO SCH (08:55)
[2017-07-15] MEDS: FUROSEMIDE 40 MG TAB PO SCH (08:58)
[2017-07-15] MEDS ORDERED: LOSARTAN 50 MG TAB PO SCH (09:00)
[2017-07-15] MEDS ORDERED: cloNIDine HCL 0.1 MG TAB PO SCH (09:00)
[2017-07-15] MEDS ORDERED: PIOGLITAZONE HCL 30 MG TAB PO SCH (09:00)
[2017-07-15] MEDS ORDERED: CHOLECALCIFEROL (VIT D3) 1000 UNIT TAB PO SCH (09:00)
[2017-07-15] MEDS ORDERED: CARVEDILOL 12.5 MG TAB PO SCH (09:00)
[2017-07-15] MEDS: SODIUM CHLORIDE 0.9% FLUSH 10 ML FLUSH IV FLUSH SCH (09:00)
[2017-07-15] MEDS ORDERED: PATIROMER PO SCH (09:00)
[2017-07-15] MEDS ORDERED: ALLOPURINOL 100 MG TAB PO SCH (09:00)
[2017-07-15] MEDS ORDERED: PRAVASTATIN SOD 40 MG TAB PO SCH (09:00)
[2017-07-15] MEDS ORDERED: DOXAZOSIN MESYLATE 4 MG TAB PO SCH (09:00)
[2017-07-15 09:14] LABS: BICARBONATE 31.7 MEQ/L (21.0-32.0); POTASSIUM 3.3 MEQ/L (3.5-5.1)
[2017-07-15 11:53] LABS: HEPATITIS B SURFACE ANTIBODY 0 mIU/mL
[2017-07-15 12:00] VITALS: BP 107/55; PULSE 68; RESP 18; TEMP 98.2; O2SAT 97
--- NOTE | 2017-07-15 12:21 | HHI.DCPOC ---
Discharge Care Plan Diagnosis: (1) End stage renal disease (2) Peripheral edema (3) Hypertension (4) Type 2 diabetes mellitus (5) CKD (chronic kidney disease) stage 5, GFR less than 15 ml/min (6) Anemia Your Health Problems Are: Anxiety Difficulty with ADL Shortness of Breath Goals to Promote Your Health * To prevent worsening of your condition and complications * To maintain your health at the optimal level Directions to Meet Your Goals Take your medications as prescribed Follow your dietary instruction Follow activity as directed Keep your appointments as scheduled Take your immunizations and boosters as scheduled If your symptoms worsen call your PCP, if no PCP go to Urgent Care Center or Emergency Room Smoking is Dangerous to Your Health. Avoid second hand smoke Call the 24-hour hour crisis hotline for domestic abuse at Aleksandra Miller [facility] Jul 15, 2017 12:21
--- NOTE | 2017-07-15 12:22 | HHI.PR ---
Subjective Subjective Remarks feels better no sob no cp less fatigue less leg swelling anxious to home at bsd Review of Systems Constitutional Constitutional Remarks 12 point ros completed, negative except as noted above Vitals/Results Vital Signs Vital Signs Date Time Temp Pulse Resp B/P (MAP) Pulse Ox O2 Delivery O2 Flow Rate FiO2 07/15/17 12:00 98.2 68 18 107/55 (72) 97 07/15/17 08:00 Room Air 07/15/17 08:00 68 07/15/17 08:00 99.1 69 18 128/72 (90) 94 07/15/17 04:55 97.9 63 16 135/63 (87) 94 07/15/17 00:07 98.7 79 16 133/60 (84) 96 07/14/17 22:33 Room Air 07/14/17 20:20 97.9 92 16 132/58 (82) 95 07/14/17 16:00 98.1 74 18 153/78 (103) 97 07/14/17 12:46 98 21 CBC/BMP: 07/14/17 1150 07/15/17 0609 Lab Results Laboratory Tests Test 07/14/17 17:20 07/15/17 05:50 07/15/17 06:09 Blood Urea Nitrogen 32 MG/DL Creatinine 5.99 MG/DL Random Glucose 103 MG/DL Calcium Level 7.7 MG/DL Sodium Level 140 MEQ/L Potassium Level 3.3 MEQ/L Chloride Level 100 MEQ/L Carbon Dioxide Level 31.7 MEQ/L Anion Gap 8 MEQ/L Estimat Glomerular Filtration Rate 9 ML/MIN Physical Exam General General Appearance: Well Developed, Well Nourished, No Acute Distress, Comfortable, Obese Eyes Eye Exam: Pupils Equal, Pupils Reactive Ears & Nose Ears & Nose Exam: Nasal Mucosa [place] Throat Throat Exam: Oral Mucosa [place] & Moist Neck Neck Exam: Neck Supple, Trachea Midline Pulmonary Resp Exam: Clear Bilaterally, No Distress Cardiology CV Exam: Regular Gastrointestinal/Abdomen GI Exam: Soft, Non-Tender, Bowel Sounds Present, Non-Distended GI Remarks PD catheter LLQ Musculoskeletal MS Exam: Joints Intact Integumentary Skin Exam: Warm, Dry Extremeties Extremities Exam: Pedal Pulses Palpable, Moderate Edema (improved ) Neurologic Neuro Exam: Alert, Awake, Oriented, Speech Clear, Moving All Extremities, No Focal Deficits Psychiatric Psych Exam: Appropriate Responses VTE Prophylaxis VTE Prophylaxis Device: SCDs Assessment/Plan Problem List: (1) End stage renal disease ICD Codes: N18.6 - End stage renal disease Status: Chronic (2) Peripheral edema ICD Codes: R60.9 - Edema, unspecified (3) Hypertension ICD Codes: I10 - Essential (primary) hypertension (4) Type 2 diabetes mellitus ICD Codes: E11.9 - Type 2 diabetes mellitus without complications Status: Chronic (5) CKD (chronic kidney disease) stage 5, GFR less than 15 ml/min ICD Codes: N18.5 - Chronic kidney disease, stage 5 Status: Chronic (6) Anemia ICD Codes: D64.9 - Anemia, unspecified Status: Chronic Assessment/Plan 86-year-old male with chronic kidney disease stage V, was on peritoneal dialysis. Now admitted for permacath placement and to begin hemodialysis Chronic kidney disease stage V now requiring dialysis -Nephrology input appreciated. -permacath done in IR 07/14, had first HD treatment x 3 hours. Tolerated well. -Avoid nephrotoxic agents -renal indices improved, less leg swelling. Less fatigue Diabetes type 2 -Accu-Cheks before meals and at bedtime with insulin therapy -blood glucose stable Hypertension, stable -continue home medications Peripheral edema -Continue diuretics SCDs for DVT prophylaxis Labs reviewed, replace K improved renal indices symptoms improving will have RN assist OOB consult PT for eval poss dc today after nephrology clears D/W RN D/W pt and D/W Dr. Stout This patient was seen by myself and Dr. Stout, this note is written on his behalf Problem Qualifiers (1) Hypertension: Qualified Codes: I10 - Essential (primary) hypertension (2) Type 2 diabetes mellitus: Qualified Codes: E11.22 - Type 2 diabetes mellitus with diabetic chronic kidney disease; N18.6 - End stage renal disease; Z99.2 - Dependence on renal dialysis (3) Anemia: Aleksandra Miller Jul 15, 2017 12:22
--- NOTE | 2017-07-15 12:31 | RADRPT ---
EXAM DATE/TIME: 07/14/2017 15:56 [place] COMPARISON: No previous studies available for comparison. INDICATIONS : Patient presnts with end stage renal disease in need of dialysis catheter placement for treatment. MEDICAL HISTORY : End-stage renal disease now requiring peritoneal dialysis CKD stage V Anemia Type 2 diabetes Hyperkalemia Peripheral edema Hypertension Type 2 diabetes Hyperlipidemia Gout Skin cancer Secondary hyperparathyroidism Acidosis SURGICAL HISTORY : PD catheter placement 04/06/2017 Skin cancer removal Cholecystectomy Prostate surgery ENCOUNTER: Initial ACUITY: 1 day PAIN SCORE: 0/10 LOCATION: N/A FLUORO TIME: 1.7 minutes IMAGE SERIES: 1 SEDATION TIME: 10 minutes ACCESS: Right internal jugular vein SEDATION: 1.) 1.5 mg midazolam (Versed) IV 2.) 100 mcg fentanyl (Sublimaze) IV Prophylactic antibiotics were administered with appropriate pre-procedure timing. Vancomycin within 2 hours of procedure, Ancef (or alternative) within 1 hour of procedure. DEVICE: 1. 14 Spanish dual lumen 23 cm Cifuentes II Plus catheter PROCEDURE : 1. Fluoroscopically-guided venipuncture. 2. PermaCath placement. 3. Conscious sedation with continuous EKG and oximetry monitoring. The risks, benefits and alternatives to the procedure were explained and verbal and written consent w as obtained. The site was prepped in sterile fashion. Full sterile technique was used, including ca p, mask, sterile gloves and gown and a large sterile sheet. Hand hygiene and 2% chlorhexidine Betadi ne was utilized per protocol for cutaneous antisepsis with appropriate dry time for site. The skin a nd subcutaneous tissues were infiltrated with local anesthetic solution. Utilizing fluoroscopic guidance a dermatotomy was created over right internal jugular vein. A microp uncture set was used to access the targeted vein and serial dilatation was performed to accept the pr escribed length Cifuentes catheter. A subcutaneous tunnel was created in a retrograde fashion the Canno n catheter was pulled through the tunnel. The catheter was flushed and assembled and locked with hep buffy. The catheter was sutured in place. Conscious sedation was performed with the prescribed dosages and duration as above in the presence of an independent trained radiology nurse to assist in the monitoring of the patient. EKG and oximetry remained stable throughout the procedure. The patient tolerated the procedure well and there were n o complications. The patient was sent to post anesthesia recovery in stable condition. CONCLUSION: Uncomplicated PermaCath placement as above. Michael Diaz MD on July 15, 2017 at 12:29 Board Certified Radiologist. This report was verified electronically.
[2017-07-15] MEDS ORDERED: POTASSIUM CHLORIDE 25 MEQ EFFERVESCENT TAB PO ONE (12:45)
[2017-07-15 13:47] LABS: AUTOMATED NEUTROPHIL # 3.5 TH/MM3 (1.8-7.7); BASOPHIL # 0.2 TH/MM3 (0-0.2); BASOPHIL % 2.7 % (0.0-2.0); EOSINOPHIL # 0.3 TH/MM3 (0-0.4); EOSINOPHIL % 4.7 % (0.0-4.0); HEMATOCRIT 29.8 % (39.0-51.0); HEMO FLAGS DIFF FINAL; LYMPH % 20.3 % (9.0-44.0); LYMPHOCYTE # 1.2 TH/MM3 (1.0-4.8); MEAN CELL VOLUME 98.1 FL (80.0-100.0); MEAN CORPUSCULAR HEMOGLOBIN 32.8 PG (27.0-34.0); MEAN CORPUSCULAR HGB CONC 33.4 % (32.0-36.0); MONO % 12.8 % (0.0-8.0); NEUT % 59.5 % (16.0-70.0); PLATELET COUNT 190 TH/MM3 (150-450); RED BLOOD COUNT 3.04 MIL/MM3 (4.50-5.90); RED CELL DISTRIBUTION WIDTH 15.8 % (11.6-17.2); WHITE BLOOD COUNT 5.9 TH/MM3 (4.0-11.0)
== END 2017-07-15 14:45 | disposition home or self-care (01) | DRG 682 ==
LOC: N04B 08:51
PROVIDERS: ADMIT Specialist; ATTEND Specialist
PROC: 05HM33Z Insertion of Infusion Device into Right Internal Jugular Vein, Percutaneous Approach (ICD-10-PCS; principal; 2017-07-15)
PROC: B5131ZA Fluoroscopy of Right Jugular Veins using Low Osmolar Contrast, Guidance (ICD-10-PCS; 2017-07-15)
DX: I12.0 Hypertensive chronic kidney disease with stage 5 chronic kidney disease or end stage renal disease (principal); N18.6 End stage renal disease; E11.22 Type 2 diabetes mellitus with diabetic chronic kidney disease; D64.9 Anemia, unspecified; E78.5 Hyperlipidemia, unspecified; E87.6 Hypokalemia; M10.9 Gout, unspecified; E87.70 Fluid overload, unspecified; F41.9 Anxiety disorder, unspecified; Z85.828 Personal history of other malignant neoplasm of skin; Z87.891 Personal history of nicotine dependence; Z99.2 Dependence on renal dialysis; R60.0 Localized edema
CPT/HCPCS: 36558; 76937; 77001; 80048; 82948; 85025; 85027; 85610; 85730; 86317; 86803; 87340; 90935; 96374; 96375; 99152; C1750; C1769; J1580; J1644; J2250; J3010; J3370; Q4081

== ENCOUNTER 2017-12-03 13:53 | Emergency (ER) | payer MEDICARE ==
[~2017-12-03] VITALS: Ht 160 cm; Wt 78.5 kg
[~2017-12-03 13:53] MED LIST changes: -ASPI-110 PO; +ASPI1TAB57 PO
[2017-12-03 14:00] VITALS: BP 190/81; PULSE 59; RESP 16; TEMP 97.6; O2SAT 100
[2017-12-03] MEDS ORDERED: NITR1SUB3 SL (14:22)
[2017-12-03] MEDS ORDERED: AMLO5TAB2 PO (14:22)
--- NOTE | 2017-12-03 14:33 | PD ---
HPI Chief Complaint: GI Complaint Time Seen by Provider: 14:19 Travel History International Travel<30 days: No Contact w/Intl Traveler<30days: No Traveled to known affect area: No History of Present Illness HPI Patient 87-year-old male presents emergency department at the insistence of his dialysis nurse for evaluation of rectal bleeding. Patient states he has a history of hemorrhoids in the distant past and this bleeding is very similar to that. Denies any pain, states he had small to moderate amount of bleeding earlier today, he states that his dialysis nurse was concerned because she gave him heparin at the end of his dialysis session which apparently is only enough to heparinize his port but is unclear. Patient states he feels well, no dizziness no fatigue, he states he does not want to be here and from the onset of the encounter states he does not want to be admitted to the hospital. He is calm and cooperative and quite pleasant. States symptoms are moderate, context and associated sinus symptoms as above, intermittent. 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) Cardiovascular Problems: Yes (htn on meds, [place] , on dialysis) High Cholesterol: Yes Diabetes: Yes (type 2) Patient Takes Glucophage: No Dialysis: Yes (M-W-) Endocrine: No Gastrointestinal Disorders: Yes Genitourinary: Yes Hepatitis: No Hiatal Hernia: No Hypertension: Yes Immune Disorder: No Implanted Vascular Access Dvce: No Musculoskeletal: Yes Neurologic: No Psychiatric: No Reproductive: No Respiratory: No Myocardial Infarction: Yes Renal Failure: Yes Thyroid Disease: No Past Surgical History Abdominal Surgery: Yes ( ) AICD: No Body Medical Devices: PD catheter for dialysis Cardiac Surgery: No Cholecystectomy: Yes Ear Surgery: No Endocrine Surgery: No Eye Surgery: Yes (cataract 6-7 years ago) Genitourinary Surgery: No Joint Replacement: No Neurologic Surgery: No Pacemaker: No Thoracic Surgery: No Tonsillectomy: Yes Other Surgery: Yes (FISTULA LEFT ARM NONFUNCTIONING, PROSTATE) Social History Alcohol Use: Yes (STATES 1 DRINK A DAY ) Tobacco Use: No (QUIT 40 YEARS AGO) Substance Use: Yes Allergies-Medications (Allergen,Severity, Reaction): Coded Allergies: Fish Containing Products (Unverified Allergy, Severe, Swelling, 12/03/17) face swelling iodine (Unverified Allergy, Severe, Swelling, 12/03/17) face swelling potassium iodide (Unverified Allergy, Severe, Swelling, 12/03/17) face swelling povidone-iodine (Unverified Allergy, Severe, Swelling, 12/03/17) face swelling sodium iodide (Unverified Allergy, Severe, Swelling, 12/03/17) face swelling sodium iodide (Unverified Allergy, Severe, Swelling, 12/03/17) face swelling amoxicillin (Unverified Allergy, Unknown, 12/03/17) Reported Meds & Prescriptions Reported Meds & Active Scripts Active Hydrocortisone Acetate Supp 30 Mg Supp 1 Supp SC BID 7 Days Reported Nitroglycerin SL (Nitroglycerin) 0.4 Mg Subl 0.4 Mg SL DIRECTED PRN ONE TABLET UNDER THE TONGUE NEEDED FOR CHEST PAIN, MAY REPEAT EVERY FIVE MINUTES FOR A TOTAL OF 3 DOSES OR CALL 911 IF NO RELIEF Amlodipine (Amlodipine Besylate) 5 Mg Tab 5 Mg PO DAILY Vitamin D3 (Cholecalciferol) 1,000 Unit Tab 1,000 Units PO DAILY Aspirin 81 (Aspirin) 81 Mg Tabdr 81 Mg PO DAILY Allopurinol 100 Mg Tab 100 Mg PO DAILY Lasix (Furosemide) 40 Mg Tab 80 Mg PO BID Losartan (Losartan Potassium) 50 Mg Tab 50 Mg PO DAILY Pravastatin 40 Mg Tab 40 Mg PO DAILY Pioglitazone (Pioglitazone HCl) 30 Mg Tab 30 Mg PO DAILY Review of Systems Except as stated in HPI: all other systems reviewed are Neg Physical Exam Narrative GENERAL: Well-developed well-nourished, quite pleasant in no obvious distress SKIN: Focused skin assessment warm/dry. HEAD: Atraumatic. Normocephalic. EYES: Pupils equal and round. No scleral icterus. No injection or drainage. ENT: No nasal bleeding or discharge. Mucous membranes pink and moist. NECK: Trachea midline. No JVD. CARDIOVASCULAR: Regular rate and rhythm. No murmur appreciated. RESPIRATORY: No accessory muscle use. Clear to auscultation. Breath sounds equal bilaterally. GASTROINTESTINAL: Abdomen soft, non-tender, nondistended. Hepatic and splenic margins not palpable. RECTAL: There is some dried blood around the anal orifice, there is some skin tags but no obvious hemorrhoids. No internal hemorrhoids either. On internal examination there is no obvious gushing of blood but there is a small clot smaller than a pea which was removed on internal examination. MUSCULOSKELETAL: No obvious deformities. No clubbing. No cyanosis. No edema. NEUROLOGICAL: Awake and alert. No obvious cranial nerve deficits. Motor grossly within normal limits. Normal speech. PSYCHIATRIC: Appropriate mood and affect; insight and judgment normal. Data Data Last Documented VS Vital Signs Date Time Temp Pulse Resp B/P (MAP) Pulse Ox O2 Delivery O2 Flow Rate FiO2 12/03/17 16:58 61 160/61 (94) 100 12/03/17 16:00 Room Air 12/03/17 14:00 97.6 16 Orders Orders Complete Blood Count With Diff (12/03/17 14:32) Comprehensive Metabolic Panel (12/03/17 14:32) Prothrombin Time / Inr (Pt) (12/03/17 14:32) Act Partial Throm Time (Ptt) (12/03/17 14:32) Ecg Monitoring (12/03/17 14:32) Iv Access Insert/Monitor (12/03/17 14:32) Oximetry (12/03/17 14:32) Sodium Chloride 0.9% Flush (Ns Flush) (12/03/17 14:45) Ed Discharge Order (12/03/17 16:36) Labs Laboratory Tests Test 12/03/17 15:36 White Blood Count 8.7 TH/MM3 Red Blood Count 3.61 MIL/MM3 Hemoglobin 12.1 GM/DL Hematocrit 35.7 % Mean Corpuscular Volume 98.8 FL Mean Corpuscular Hemoglobin 33.5 PG Mean Corpuscular Hemoglobin Concent 33.9 % Red Cell Distribution Width 14.9 % Platelet Count 206 TH/MM3 Mean Platelet Volume 9.2 FL Neutrophils (%) (Auto) 62.5 % Lymphocytes (%) (Auto) 22.3 % Monocytes (%) (Auto) 10.0 % Eosinophils (%) (Auto) 4.8 % Basophils (%) (Auto) 0.4 % Neutrophils # (Auto) 5.5 TH/MM3 Lymphocytes # (Auto) 1.9 TH/MM3 Monocytes # (Auto) 0.9 TH/MM3 Eosinophils # (Auto) 0.4 TH/MM3 Basophils # (Auto) 0.0 TH/MM3 CBC Comment DIFF FINAL Differential Comment Prothrombin Time 10.6 SEC Prothromb Time International Ratio 1.0 RATIO Activated Partial Thromboplast Time 22.9 SEC Blood Urea Nitrogen 19 MG/DL Creatinine 3.30 MG/DL Random Glucose 97 MG/DL Total Protein 7.4 GM/DL Albumin 3.7 GM/DL Calcium Level 8.4 MG/DL Alkaline Phosphatase 69 U/L Aspartate Amino Transf (AST/SGOT) 21 U/L Alanine Aminotransferase (ALT/SGPT) 25 U/L Total Bilirubin 0.5 MG/DL Sodium Level 135 MEQ/L Potassium Level 3.3 MEQ/L Chloride Level 99 MEQ/L Carbon Dioxide Level 29.1 MEQ/L Anion Gap 7 MEQ/L Estimat Glomerular Filtration Rate 18 ML/MIN [facility] Medical Decision Making Medical Screen Exam Complete: Yes Emergency Medical Condition: Yes Differential Diagnosis Anemia, GI bleeding, hemorrhoid bleeding, Narrative Course Patient was room to the emergency department, quite pleasant vital signs stable , hemoglobin is 12. His bleeding appears for the moment to have stopped at least in the visible portion of his anus while in the emergency department. I explained to him though that if he is bleeding internally this would be hard to quantify as it cannot be visualized. If he is still bleeding and continues to bleed it is difficult to quantify whether this is a life-threatening bleed or not. At this time I had offered him admission to the hospital for H&H trending at a minimum to assure him that he is not bleeding significantly. The patient states he would rather go home and follow-up with a welfare eligibility worker as an outpatient. I discussed with him that because I cannot give him any assurances that he has stopped bleeding he is at risk of and permanent disability, he verbalized understanding of specific risks including bleeding to becoming bedbound and ventilator dependent should he have a cardiac arrest and be successfully revived. I think it is reasonable however for him to pursue outpatient management given that his hemoglobin is 12 but he was counseled closely that if his bleeding continued or worsen that he should present to the nearest emergency department for evaluation or call 911 if he thinks that anytime his life is in jeopardy. He verbalized understanding and agreement was discharged to self-care Diagnosis Primary Impression: Rectal bleeding Additional Impression: Hemorrhoids Med/Other Pt SpecificInfo: Prescription(s) given Scripts Hydrocortisone Acetate Supp (Hydrocortisone Acetate Supp) 30 Mg Supp 1 SUPP SC BID for 7 Days, 0 Refills Prov: Mike Munoz MD 12/03/17 Disposition: 01 DISCHARGE HOME Condition: Stable Mike Munoz MD Dec 03, 2017 14:33
[2017-12-03] MEDS ORDERED: SODIUM CHLORIDE 0.9% FLUSH 10 ML FLUSH IVF PRN (14:45)
[2017-12-03 16:00] VITALS: O2SAT 98
[2017-12-03 16:01] LABS: CHLORIDE 99 MEQ/L (98-107); SODIUM (NA) 135 MEQ/L (136-145)
[2017-12-03 16:04] LABS: CALCIUM 8.4 MG/DL (8.5-10.1)
[2017-12-03 16:05] LABS: ALBUMIN 3.7 GM/DL (3.4-5.0); AUTOMATED NEUTROPHIL # 5.5 TH/MM3 (1.8-7.7); BASOPHIL % 0.4 % (0.0-2.0); BICARBONATE 29.1 MEQ/L (21.0-32.0); BLOOD UREA NITROGEN 19 MG/DL (7-18); EOSINOPHIL # 0.4 TH/MM3 (0-0.4); EOSINOPHIL % 4.8 % (0.0-4.0); GLUCOSE,RANDOM 97 MG/DL (74-106); HEMATOCRIT 35.7 % (39.0-51.0); HEMOGLOBIN 12.1 GM/DL (13.0-17.0); LYMPH % 22.3 % (9.0-44.0); LYMPHOCYTE # 1.9 TH/MM3 (1.0-4.8); MEAN CELL VOLUME 98.8 FL (80.0-100.0); MEAN CORPUSCULAR HEMOGLOBIN 33.5 PG (27.0-34.0); MEAN CORPUSCULAR HGB CONC 33.9 % (32.0-36.0); MEAN PLATELET VOLUME 9.2 FL (7.0-11.0); MONOCYTE # 0.9 TH/MM3 (0-0.9); NEUT % 62.5 % (16.0-70.0); PLATELET COUNT 206 TH/MM3 (150-450); RED BLOOD COUNT 3.61 MIL/MM3 (4.50-5.90); RED CELL DISTRIBUTION WIDTH 14.9 % (11.6-17.2); WHITE BLOOD COUNT 8.7 TH/MM3 (4.0-11.0)
[2017-12-03 16:07] LABS: PROTHROMBIN TIME - PATIENT 10.6 SEC (9.8-11.6)
[2017-12-03 16:08] LABS: ALT (GPT) 25 U/L (12-78); AST (GOT) 21 U/L (15-37); GLOMERULAR FILTRATION RATE 18 ML/MIN (>89)
[2017-12-03 16:10] LABS: TOTAL BILIRUBIN ADULT 0.5 MG/DL (0.2-1.0); TOTAL PROTEIN 7.4 GM/DL (6.4-8.2)
[2017-12-03 16:11] LABS: ALKALINE PHOSPHATASE 69 U/L (45-117)
[2017-12-03] MEDS ORDERED: HYDR30SU PR (16:36)
[2017-12-03 16:58] VITALS: BP 160/61
== END 2017-12-03 17:02 | disposition home or self-care (01) ==
LOC: PHED 13:53
DX: K62.5 Hemorrhage of anus and rectum (principal); K64.9 Unspecified hemorrhoids; E78.00 Pure hypercholesterolemia, unspecified; E11.9 Type 2 diabetes mellitus without complications; I10 Essential (primary) hypertension; I25.2 Old myocardial infarction; Z99.2 Dependence on renal dialysis; Z79.82 Long term (current) use of aspirin; Z87.891 Personal history of nicotine dependence
CPT/HCPCS: 80053; 85025; 85610; 85730; 99283